=== PATIENT | female | born 1960 | race Caucasian/White ===

== ENCOUNTER 2018-12-18 18:42 | Emergency (ER) | payer BC ==
[2018-12-18] MEDS ORDERED: SODIUM CHLORIDE 0.9% 1,000 ML IV STA (19:30)
[2018-12-18] MEDS ORDERED: SODIUM CHLORIDE 0.9% 500 ML 500 ML IV STA (19:30)
[2018-12-18 20:14] LABS: INR 0.9 (<1.2); Partial Thromboplastin Time 23.2 sec (22.0-30.0)
[2018-12-18 20:16] LABS: ALT 27 U/L (9-52); AST 29 U/L (14-36); Albumin 4.1 g/dL (3.5-5.0); Alkaline Phosphatase 121 U/L (38-126); Anion Gap 8 mmol/L; Blood Urea Nitrogen 16 mg/dL (7-17); Calcium 9.1 mg/dL (8.4-10.2); Carbon Dioxide 28 mmol/L (22-30); Chloride 103 mmol/L (98-107); Glucose 117 mg/dL (74-99); Lipase 50 U/L (23-300); Magnesium 2.3 mg/dL (1.6-2.3); Potassium 4.3 mmol/L (3.5-5.1); Sodium 139 mmol/L (137-145); Total Bilirubin 0.5 mg/dL (0.2-1.3)
[2018-12-18 20:29] LABS: Anisocytosis Slight; Basophils % (A) 1 %; Eosinophils # (A) 0.1 k/uL (0-0.7); Eosinophils % (A) 2 %; HCT 24.8 % (34.0-46.0); Hypochromasia Marked; Lymphocytes # (A) 1.2 k/uL (1.0-4.8); Lymphocytes % (A) 21 %; MCH 18.2 pg (25.0-35.0); MCHC 28.1 g/dL (31.0-37.0); MCV 64.7 fL (80.0-100.0); Mean Platelet Volume 6.8; Microcytosis Marked; Monocytes # (A) 0.4 k/uL (0-1.0); Monocytes % (A) 7 %; Neutrophils # (A) 3.9 k/uL (1.3-7.7); Neutrophils % (A) 67 %; Platelet Count 317 k/uL (150-450); Poikilocytosis Moderate; RBC 3.83 m/uL (3.80-5.40); RDW 18.2 % (11.5-15.5); WBC 5.8 k/uL (3.8-10.6)
--- NOTE | 2018-12-18 21:24 | ED ---
Recheck HPI - General Chief Complaint: Recheck/Abnormal Lab/Rx Stated Complaint: low hemoglobin Time Seen by Provider: 12/18/18 19:30 Source: patient, RN notes reviewed, old records reviewed Mode of arrival: ambulatory Limitations: no limitations - History of Present Illness Initial Comments: This is a 58-year-old female the ER for evaluation of abnormal lab tests. Patient is presenting for evaluation of low hemoglobin. Patient denies vomiting blood denies blood in her stool no history of low hemoglobin. No prior history of blood transfusion. Patient states on outpatient lab test she did have a hemoglobin of what she believes was 4.8. She denies symptoms of lightheadedness dizziness or weakness. No feelings of syncope or near-syncope position changes or going from sitting to standing. No shortness of breath. MD Complaint: abnormal lab (Low hemoglobin) -: unknown Returns Today for: Called Because of Abnormal Lab/Test Symptoms Since Prior Visit: no new symptoms Context: called for abnormal lab result Associated Symptoms: none - Related Data Home Medications Medication Instructions Recorded Confirmed DULoxetine HCL [Cymbalta] 60 mg PO DAILY 12/18/18 12/18/18 LORazepam [Ativan] 0.5 mg PO QID 12/18/18 12/18/18 Naproxen Sodium [Aleve] 440 mg PO Q12HR 12/18/18 12/18/18 Potassium 99 mg PO DAILY 12/18/18 12/18/18 rOPINIRole HCL [Requip] 0.5 mg PO HS 12/18/18 12/18/18 traMADol HCL [Ultram] 1 - 2 tab PO BID 12/18/18 12/18/18 Allergies Allergy/AdvReac Type Severity Reaction Status Date / Time No Known Allergies Allergy Verified 12/18/18 20:39 Review of Systems ROS Statement: Those systems with pertinent positive or pertinent negative responses have been documented in the HPI. ROS Other: All systems not noted in ROS Statement are negative. Past Medical History Additional Past Medical History / Comment(s): chronic back pain, restless leg syndrome History of Any Multi-Drug Resistant Organisms: None Reported Past Surgical History: Tubal Ligation Past Psychological History: Anxiety, Depression Smoking Status: Never smoker Past Alcohol Use History: None Reported Past Drug Use History: None Reported General Exam Limitations: no limitations General appearance: alert, in no apparent distress Head exam: Present: atraumatic, normocephalic, normal inspection Eye exam: Present: normal appearance, PERRL, EOMI. Absent: scleral icterus, conjunctival injection, periorbital swelling ENT exam: Present: normal exam, mucous membranes moist Neck exam: Present: normal inspection. Absent: tenderness, meningismus, lymphadenopathy Respiratory exam: Present: normal lung sounds bilaterally. Absent: respiratory distress, wheezes, rales, rhonchi, stridor Cardiovascular Exam: Present: regular rate, normal rhythm, normal heart sounds. Absent: systolic murmur, diastolic murmur, rubs, gallop, clicks GI/Abdominal exam: Present: soft, normal bowel sounds. Absent: distended, tenderness, guarding, rebound, rigid Extremities exam: Present: normal inspection, full ROM, normal capillary refill. Absent: tenderness, pedal edema, joint swelling, calf tenderness Back exam: Present: normal inspection Neurological exam: Present: alert, oriented X3, CN II-XII intact Psychiatric exam: Present: normal affect, normal mood Skin exam: Present: warm, dry, intact, normal color. Absent: rash Course Vital Signs 12/18/18 12/18/18 12/18/18 18:59 21:03 21:51 Temperature 99.4 F 98.7 F Pulse Rate 111 H 99 92 Respiratory 18 16 18 Rate Blood Pressure 141/71 125/79 124/85 O2 Sat by Pulse 98 97 99 Oximetry - Reevaluation(s) Reevaluation #1: Medical records reviewed Patient has he will 7 today, will follow-up with primary care for further testing of hemoglobin Patient remains asymptomatic Medical Decision Making - Medical Decision Making 58 female the ER for evaluation she presents today for evaluation regards to abnormal lab tests. Patient's lab tests is much improved here in the ER, she is asymptomatic is no need for transfusion. She can be discharged - Lab Data Result diagrams: 12/18/18 19:55 12/18/18 19:55 Lab Results 12/18/18 12/18/18 12/18/18 Range/Units 19:55 19:55 19:55 WBC 5.8 (3.8-10.6) k/uL RBC 3.83 (3.80-5.40) m/uL Hgb 7.0 L (11.4-16.0) gm/dL Hct 24.8 L (34.0-46.0) % MCV 64.7 L (80.0-100.0) fL MCH 18.2 L (25.0-35.0) pg MCHC 28.1 L (31.0-37.0) g/dL RDW 18.2 H (11.5-15.5) % Plt Count 317 (150-450) k/uL Neutrophils % 67 % Lymphocytes % 21 % Monocytes % 7 % Eosinophils % 2 % Basophils % 1 % Neutrophils # 3.9 (1.3-7.7) k/uL Lymphocytes # 1.2 (1.0-4.8) k/uL Monocytes # 0.4 (0-1.0) k/uL Eosinophils # 0.1 (0-0.7) k/uL Basophils # 0.0 (0-0.2) k/uL Hypochromasia Marked Poikilocytosis Moderate Anisocytosis Slight Microcytosis Marked PT 10.0 (9.0-12.0) sec INR 0.9 (<1.2) APTT 23.2 (22.0-30.0) sec Sodium 139 (137-145) mmol/L Potassium 4.3 (3.5-5.1) mmol/L Chloride 103 (98-107) mmol/L Carbon Dioxide 28 (22-30) mmol/L Anion Gap 8 mmol/L BUN 16 (7-17) mg/dL Creatinine 0.68 (0.52-1.04) mg/dL Est GFR (CKD-EPI)AfAm >90 (>60 ml/min/1.73 sqM) Est GFR (CKD-EPI)NonAf >90 (>60 ml/min/1.73 sqM) Glucose 117 H (74-99) mg/dL Calcium 9.1 (8.4-10.2) mg/dL Magnesium 2.3 (1.6-2.3) mg/dL Total Bilirubin 0.5 (0.2-1.3) mg/dL AST 29 (14-36) U/L ALT 27 (9-52) U/L Alkaline Phosphatase 121 (38-126) U/L Troponin I (0.000-0.034) ng/mL Total Protein 7.0 (6.3-8.2) g/dL Albumin 4.1 (3.5-5.0) g/dL Lipase 50 (23-300) U/L Blood Type Blood Type Confirm Blood Type Recheck Antibody Screen Direct Antiglob Test Spec Expiration Date 12/18/18 12/18/18 12/18/18 Range/Units 19:55 19:55 21:39 WBC (3.8-10.6) k/uL RBC (3.80-5.40) m/uL Hgb (11.4-16.0) gm/dL Hct (34.0-46.0) % MCV (80.0-100.0) fL MCH (25.0-35.0) pg MCHC (31.0-37.0) g/dL RDW (11.5-15.5) % Plt Count (150-450) k/uL Neutrophils % % Lymphocytes % % Monocytes % % Eosinophils % % Basophils % % Neutrophils # (1.3-7.7) k/uL Lymphocytes # (1.0-4.8) k/uL Monocytes # (0-1.0) k/uL Eosinophils # (0-0.7) k/uL Basophils # (0-0.2) k/uL Hypochromasia Poikilocytosis Anisocytosis Microcytosis PT (9.0-12.0) sec INR (<1.2) APTT (22.0-30.0) sec Sodium (137-145) mmol/L Potassium (3.5-5.1) mmol/L Chloride (98-107) mmol/L Carbon Dioxide (22-30) mmol/L Anion Gap mmol/L BUN (7-17) mg/dL Creatinine (0.52-1.04) mg/dL Est GFR (CKD-EPI)AfAm (>60 ml/min/1.73 sqM) Est GFR (CKD-EPI)NonAf (>60 ml/min/1.73 sqM) Glucose (74-99) mg/dL Calcium (8.4-10.2) mg/dL Magnesium (1.6-2.3) mg/dL Total Bilirubin (0.2-1.3) mg/dL AST (14-36) U/L ALT (9-52) U/L Alkaline Phosphatase (38-126) U/L Troponin I <0.012 (0.000-0.034) ng/mL Total Protein (6.3-8.2) g/dL Albumin (3.5-5.0) g/dL Lipase (23-300) U/L Blood Type O Positive Blood Type Confirm O Positive Blood Type Recheck CABO Indicated Antibody Screen POSITIVE Direct Antiglob Test Positive Spec Expiration Date 12/21/2018 - 2355 Disposition Clinical Impression: Anemia Disposition: HOME SELF-CARE Condition: Good Instructions (If sedation given, give patient instructions): Anemia (ED) Is patient prescribed a controlled substance at d/c from ED?: No Referrals: Mayo Allen DO [Primary Care Provider] - 1-2 days
[2018-12-18 21:52] VITALS: BP 124/85; PULSE 92; RESP 18; TEMP 98.7
== END 2018-12-18 21:52 | disposition home or self-care (01) ==
LOC: EC 18:42 → SUPCPDRO 18:42 → EC 21:52
DX: D64.9 Anemia, unspecified (principal); G25.81 Restless legs syndrome; G89.29 Other chronic pain; F32.9 Major depressive disorder, single episode, unspecified; F41.9 Anxiety disorder, unspecified; Z79.1 Long term (current) use of non-steroidal anti-inflammatories (NSAID); Z79.891 Long term (current) use of opiate analgesic; Z79.899 Other long term (current) drug therapy
CPT/HCPCS: 36415; 80053; 83690; 83735; 84484; 85025; 85610; 85730; 86850; 86870; 86880; 86900; 86901; 96360; 99284

== ENCOUNTER 2019-10-04 10:37 | Inpatient (IN) | payer BC ==
[2019-10-04] MEDS ORDERED: SODIUM CHLORIDE 0.9% 1,000 ML IV STA ×2 (10:59)
[2019-10-04] MEDS ORDERED: methylPREDNISolone SOD SUCCI 125 MG/2 ML VIAL IV STA (10:59)
[2019-10-04] MEDS ORDERED: IBUPROFEN 600 MG TAB PO STA (11:01)
[2019-10-04] MEDS ORDERED: ACETAMINOPHEN TAB 500 MG TAB PO STA (11:01)
[2019-10-04] MEDS ORDERED: IPRATROPIUM-ALBUTEROL 3 ML NEB INHALATION STA (11:02)
--- NOTE | 2019-10-04 11:11 | ED ---
General Adult HPI - General Chief complaint: Shortness of Breath Stated complaint: Cough/CYNTHIA Time Seen by Provider: 10/04/19 10:52 Source: patient, family, RN notes reviewed, old records reviewed Mode of arrival: ambulatory Limitations: no limitations - History of Present Illness Initial comments: Patient is a 5-year-old female who presents emergency department today for concern for fever cough congestion for the past 4 days. She denies any history of sick contacts. She denies any travel history. Patient reports that she has no chest pain. She denies any [id number] treatment such as Motrin Tylenol this time. She reports the emergency department afebrile with 102.8 temperature and tachycardic. She states that her cough is relatively dry. She denies any abdominal pain. - Related Data Home Medications Medication Instructions Recorded Confirmed DULoxetine HCL [Cymbalta] 60 mg PO DAILY 12/18/18 10/04/19 Naproxen Sodium [Aleve] 440 mg PO Q12HR 12/18/18 10/04/19 Potassium 99 mg PO DAILY 12/18/18 10/04/19 traMADol HCL [Ultram] 100 mg PO BID 12/18/18 10/04/19 Albuterol Sulfate [Proair Hfa] 1 - 2 puff INHALATION ONCE PRN 10/04/19 10/04/19 LORazepam [Ativan] 1 mg PO BID 10/04/19 10/04/19 Magnesium 200 mg PO DAILY 10/04/19 10/04/19 Orphenadrine Citrate [Orphenadrine 100 mg PO HS 10/04/19 10/04/19 Citrate ER] Pantoprazole Sodium [Protonix] 40 mg PO DAILY 10/04/19 10/04/19 rOPINIRole HCL [Requip] 4 mg PO HS 10/04/19 10/04/19 Allergies Allergy/AdvReac Type Severity Reaction Status Date / Time No Known Allergies Allergy Verified 10/04/19 11:35 Review of Systems ROS Statement: Those systems with pertinent positive or pertinent negative responses have been documented in the HPI. ROS Other: All systems not noted in ROS Statement are negative. Past Medical History Additional Past Medical History / Comment(s): chronic back pain, restless leg syndrome History of Any Multi-Drug Resistant Organisms: None Reported Past Surgical History: Tubal Ligation Past Psychological History: Anxiety, Depression Smoking Status: Never smoker Past Alcohol Use History: None Reported Past Drug Use History: None Reported General Exam - General Exam Comments Initial Comments: Well-appearing 5-year-old female. Patient is short of breath. Minor wheezing noted. Temperature of 102.8. Limitations: no limitations General appearance: alert, in no apparent distress Head exam: Present: atraumatic, normocephalic, normal inspection Eye exam: Present: normal appearance ENT exam: Present: normal exam, mucous membranes moist Neck exam: Present: normal inspection. Absent: tenderness, meningismus, lymphadenopathy Respiratory exam: Present: wheezes. Absent: normal lung sounds bilaterally, respiratory distress, rales, rhonchi, stridor Cardiovascular Exam: Present: regular rate, normal rhythm, normal heart sounds. Absent: systolic murmur, diastolic murmur, rubs, gallop, clicks GI/Abdominal exam: Present: soft, normal bowel sounds. Absent: distended, tenderness, guarding, rebound, rigid Extremities exam: Present: normal inspection, full ROM, normal capillary refill. Absent: tenderness, pedal edema, joint swelling, calf tenderness Back exam: Present: normal inspection Neurological exam: Present: alert, oriented X3, CN II-XII intact Psychiatric exam: Present: normal affect, normal mood Skin exam: Present: warm, dry, intact, normal color. Absent: rash Course Vital Signs 10/04/19 10/04/19 10/04/19 10:42 11:26 11:38 Temperature 102.8 F H Pulse Rate 123 H 65 67 Respiratory 20 Rate Blood Pressure 188/69 O2 Sat by Pulse 99 Oximetry 10/04/19 12:11 Temperature Pulse Rate 116 H Respiratory 20 Rate Blood Pressure 118/55 O2 Sat by Pulse 100 Oximetry Medical Decision Making - Medical Decision Making 5 rolled female presents emergency department today with fever cough shortness of breath for the past 4 days. Patient had a fever of 102, wheezing was noted. Patient's chest x-ray shows evidence of her right upper pneumonia. Her influenza testing is negative. She has no travel history. Patient's CBC shows white blood cell count of 10.0. Hemoglobin is low at 6.7. She reports that she's had a history of anemia in the past has required transfusions. She reports that she's had extensive evaluation including colonoscopies and upper GI was unable to determine why she is anemic. Her hemoglobin at 6.7 today type and screen was ordered and Patient was given 1 unit of PRBCs. Patient has a positive occult test. Patient had blood cultures completed for concern for pneumonia and was started on Rocephin and azithromycin. After breathing treatment Motrin Tylenol and fluid she is feeling much better. I discussed the case with Dr. Cedeno and we will make the Patient for concern for symptomatic anemia causing dyspnea, comminiry aquired pneumonia pneumonia. - Lab Data Result diagrams: 10/04/19 12:10 10/04/19 12:10 Lab Results 10/04/19 10/04/19 10/04/19 Range/Units 12:00 12:10 12:10 WBC 10.0 (3.8-10.6) k/uL RBC 3.30 L (3.80-5.40) m/uL Hgb 6.7 L* (11.4-16.0) gm/dL Hct 23.8 L (34.0-46.0) % MCV 72.0 L (80.0-100.0) fL MCH 20.2 L (25.0-35.0) pg MCHC 28.0 L (31.0-37.0) g/dL RDW 18.2 H (11.5-15.5) % Plt Count 280 (150-450) k/uL Neutrophils % 83 % Lymphocytes % 7 % Monocytes % 7 % Eosinophils % 0 % Basophils % 0 % Neutrophils # 8.2 H (1.3-7.7) k/uL Lymphocytes # 0.7 L (1.0-4.8) k/uL Monocytes # 0.7 (0-1.0) k/uL Eosinophils # 0.0 (0-0.7) k/uL Basophils # 0.0 (0-0.2) k/uL Hypochromasia Marked Poikilocytosis Moderate Anisocytosis Slight Microcytosis Moderate PT 10.2 (9.0-12.0) sec INR 1.0 (<1.2) APTT 24.7 (22.0-30.0) sec Sodium (137-145) mmol/L Potassium (3.5-5.1) mmol/L Chloride (98-107) mmol/L Carbon Dioxide (22-30) mmol/L Anion Gap mmol/L BUN (7-17) mg/dL Creatinine (0.52-1.04) mg/dL Est GFR (CKD-EPI)AfAm (>60 ml/min/1.73 sqM) Est GFR (CKD-EPI)NonAf (>60 ml/min/1.73 sqM) Glucose (74-99) mg/dL Plasma Lactic Acid Kal (0.7-2.0) mmol/L Calcium (8.4-10.2) mg/dL Magnesium (1.6-2.3) mg/dL Total Bilirubin (0.2-1.3) mg/dL AST (14-36) U/L ALT (4-34) U/L Alkaline Phosphatase (38-126) U/L Total Protein (6.3-8.2) g/dL Albumin (3.5-5.0) g/dL Stool Occult Blood (Negative) Influenza Type A RNA Not Detected (Not Detectd) Influenza Type B (PCR) Not Detected (Not Detectd) 10/04/19 10/04/19 10/04/19 Range/Units 12:10 12:10 13:04 WBC (3.8-10.6) k/uL RBC (3.80-5.40) m/uL Hgb (11.4-16.0) gm/dL Hct (34.0-46.0) % MCV (80.0-100.0) fL MCH (25.0-35.0) pg MCHC (31.0-37.0) g/dL RDW (11.5-15.5) % Plt Count (150-450) k/uL Neutrophils % % Lymphocytes % % Monocytes % % Eosinophils % % Basophils % % Neutrophils # (1.3-7.7) k/uL Lymphocytes # (1.0-4.8) k/uL Monocytes # (0-1.0) k/uL Eosinophils # (0-0.7) k/uL Basophils # (0-0.2) k/uL Hypochromasia Poikilocytosis Anisocytosis Microcytosis PT (9.0-12.0) sec INR (<1.2) APTT (22.0-30.0) sec Sodium 132 L (137-145) mmol/L Potassium 4.0 (3.5-5.1) mmol/L Chloride 99 (98-107) mmol/L Carbon Dioxide 25 (22-30) mmol/L Anion Gap 8 mmol/L BUN 7 (7-17) mg/dL Creatinine 0.65 (0.52-1.04) mg/dL Est GFR (CKD-EPI)AfAm >90 (>60 ml/min/1.73 sqM) Est GFR (CKD-EPI)NonAf >90 (>60 ml/min/1.73 sqM) Glucose 200 H (74-99) mg/dL Plasma Lactic Acid Kal 1.8 (0.7-2.0) mmol/L Calcium 8.1 L (8.4-10.2) mg/dL Magnesium 2.0 (1.6-2.3) mg/dL Total Bilirubin 1.0 (0.2-1.3) mg/dL AST 32 (14-36) U/L ALT 19 (4-34) U/L Alkaline Phosphatase 91 (38-126) U/L Total Protein 6.0 L (6.3-8.2) g/dL Albumin 3.2 L (3.5-5.0) g/dL Stool Occult Blood Positive H (Negative) Influenza Type A RNA (Not Detectd) Influenza Type B (PCR) (Not Detectd) 10/04/19 12:40 EKG performed at 1220 shows sinus tachycardia, otherwise normal EKG. Ventricular rate of 116 beats per minute. Interval is 124 ms. QRS duration is 78 ms. QT QTc is 336/467 ms. Critical Care Time Critical Care Time: Yes Total Critical Care Time: 35 Disposition Clinical Impression: GI bleed, Anemia, Pneumonia, Sepsis Disposition: ADMITTED IP TO THIS HOSP Condition: Stable Is patient prescribed a controlled substance at d/c from ED?: No Referrals: Mayo Allen DO [Primary Care Provider] - 1-2 days Time of Disposition: 13:46
--- NOTE | 2019-10-04 11:50 | XR ---
EXAMINATION TYPE: XR chest 2V DATE OF EXAM: 10/04/2019 COMPARISON: 01/14/2012 HISTORY: Weakness and difficulty breathing TECHNIQUE: Frontal and lateral views of the chest are obtained. FINDINGS: In addition to diffuse interstitial prominence there is a right upper lobe opacity. No ple ural effusion or pneumothorax seen. Cardia mediastinal silhouette is mildly enlarged. No acute osseou s pathology seen. IMPRESSION: 1. Right upper lobe opacity may represent pneumonia. 2. Diffuse interstitial prominence, consider cardiogenic fluid overload.
[2019-10-04 12:24] LABS: Anisocytosis Slight; Basophils % (A) 0 %; Eosinophils % (A) 0 %; HCT 23.8 % (34.0-46.0); Hypochromasia Marked; Lymphocytes # (A) 0.7 k/uL (1.0-4.8); Lymphocytes % (A) 7 %; MCH 20.2 pg (25.0-35.0); Mean Platelet Volume 8.1; Microcytosis Moderate; Monocytes # (A) 0.7 k/uL (0-1.0); Monocytes % (A) 7 %; Neutrophils # (A) 8.2 k/uL (1.3-7.7); Neutrophils % (A) 83 %; Platelet Count 280 k/uL (150-450); Poikilocytosis Moderate; RDW 18.2 % (11.5-15.5)
[2019-10-04 12:31] LABS: ALT 19 U/L (4-34); AST 32 U/L (14-36); African American GFR (CKD) >90 (>60 ml/min/1.73 sqM); Albumin 3.2 g/dL (3.5-5.0); Alkaline Phosphatase 91 U/L (38-126); Anion Gap 8 mmol/L; Blood Urea Nitrogen 7 mg/dL (7-17); Calcium 8.1 mg/dL (8.4-10.2); Carbon Dioxide 25 mmol/L (22-30); Chloride 99 mmol/L (98-107); Glucose 200 mg/dL (74-99); Non-African American GFR(CKD) >90 (>60 ml/min/1.73 sqM); Sodium 132 mmol/L (137-145)
[2019-10-04 12:35] LABS: HGB 6.7 gm/dL (11.4-16.0)
[2019-10-04 12:36] LABS: Partial Thromboplastin Time 24.7 sec (22.0-30.0); Prothrombin Time 10.2 sec (9.0-12.0)
[2019-10-04] MEDS ORDERED: cefTRIAXone IN SWFI 1,000 MG/10 ML SYRINGE IVP STA (13:15)
[2019-10-04] MEDS ORDERED: AZITHROMYCIN 500 MG TAB PO STA (13:15)
[2019-10-04] MEDS ORDERED: NALOXONE 0.4 MG/ML 1 ML VIAL IV PRN (13:48)
[2019-10-04] MEDS ORDERED: HYDROmorphone 0.5 MG/0.5 ML SYRINGE IVP PRN (13:48)
[2019-10-04] MEDS ORDERED: ACETAMINOPHEN TAB 325 MG TAB PO PRN (13:48)
[2019-10-04] MEDS ORDERED: IBUPROFEN 400 MG TAB PO PRN (13:48)
[2019-10-04] MEDS ORDERED: MORPHINE SULFATE 4 MG/ML SYRINGE IV PRN (13:48)
[2019-10-04] MEDS ORDERED: PNEUMONIA PROTOCOL UTILIZED 1 EACH MISC PO PRN (13:51)
[2019-10-04] MEDS ORDERED: ALBUTEROL NEBULIZED 2.5 MG/3 ML INHALATION PRN (13:52)
[2019-10-04] MEDS ORDERED: PANTOPRAZOLE 40 MG/10 ML VIAL IVP ONE (13:53)
[2019-10-04 17:50] VITALS: RESP 18
[2019-10-04] MEDS ORDERED: HYDROcodone/APAP 5-325MG 1 EACH TAB PO PRN (18:52)
[2019-10-04] MEDS: IPRATROPIUM-ALBUTEROL 3 ML NEB INHALATION PRN (20:14)
[2019-10-04] MEDS: BUDESONIDE 1 MG/2 ML NEBU INHALATION SCH (20:15)
[2019-10-04] MEDS: FORMOTEROL FUMARATE 20 MCG/2 ML NEBU INHALATION SCH (20:15)
--- NOTE | 2019-10-04 20:58 | HP ---
HISTORY AND PHYSICAL DATE OF SERVICE: 10/04/2019 CHIEF COMPLAINT: Shortness of breath and cough. HISTORY OF PRESENT ILLNESS: This 59-year-old woman with a past medical history of multiple medical issues including history of COPD, history of bronchitis, history of previous anemia, transfusions, murmurs as a child, history of anxiety, depression, being followed by Dr. Allen in the outpatient setting, the patient is complaining of fever and cough for the last 4 days. The patient has cough and congestion. The patient does not have any sick contacts or any travel history. The patient also found to have a fever of 102.8. Patient tachycardic also. The patient came to [facility] and was admitted for further evaluation and treatment. A chest x-ray was done. Influenza was also done which is negative. Chest x-ray reviewed personally by me showed some right upper lobe pneumonia and diffuse interstitial pneumonia was suspected. Patient admitted to the hospital for further evaluation and treatment. CoVID19 testing was ordered. There is no history of any rigors, chills, headache, loss of consciousness or seizures. The hemoglobin is found to be 6.7. The previous lab values showed 7 about a year ago. PAST MEDICAL: History of COPD, history of bronchitis, previously and anemia, transfusions, anxiety, depression. MEDICATIONS: 1. Ultram 100 mg b.i.d. p.r.n. 2. Requip 4 mg q.h.s. 3. Potassium 90 mg p.o. daily. 4. Protonix 40 mg daily. 5. Orphenadrine 100 mg p.o. q6h. 6. Aleve 440 mg p.o. b.i.d. 7. Magnesium 200 mg p.o. daily. 8. Ativan 1 mg b.i.d. 9. Cymbalta 60 mg p.o. daily. 10.ProAir 1 to 2 puffs q.6h p.r.n. ALLERGIES: None. FAMILY HISTORY: History of hypertension and hyperlipidemia in the family. SOCIAL HISTORY: Previous history of smoking. No history of current smoking or alcohol intake. REVIEW OF SYSTEMS: ENT: No diminished vision. No diminished hearing. CARDIOVASCULAR system is as mentioned earlier. RESPIRATORY: As mentioned earlier. GI no nausea or vomiting. no dysuria. CENTRAL NERVOUS SYSTEM: No focal deficits. ALLERGIES/IMMUNOLOGY: No asthma or hayfever. MUSCULOSKELETAL as mentioned earlier. HEMATOLOGY/ONCOLOGY: No history of anemia. ENDOCRINE: No history of diabetes or hypothyroidism. CONSTITUTIONAL: As mentioned earlier. DERMATOLOGY: Negative. RHEUMATOLOGY: Negative. PSYCHIATRY as mentioned earlier. PHYSICAL EXAM: The patient is alert and oriented times three. Pulse is 105. Blood pressure is 130/72, respiration 18, temperature 99.2, pulse ox 100% on room air. HEENT: Conjunctivae pale. Oral mucosa moist. NECK is no jugular venous distention. No carotid bruit. No lymph node enlargement. CARDIOVASCULAR SYSTEM: S1, S2 muffled. RESPIRATIONS: Breath sounds diminished in the bases. A few scattered rhonchi and crackles. Breath sounds diminished in the bases. No bronchial breath sounds. ABDOMEN: Soft, nontender. No mass palpable. No ascites. LEGS: No edema. No swelling. Nervous system: Higher functions as mentioned earlier. Moves all four limbs. No focal motor or sensory deficits. LYMPHATICS: No lymph nodes palpable in the neck, axillae or groin. SKIN: No ulcer, no rashes and no bleeding. JOINTS: No active deforming arthropathy. ASSESSMENT: 1. Chronic obstructive pulmonary disease acute exacerbation with possible right upper lobe pneumonia, rule out interstitial pneumonia, viral pneumonia. 2. Anemia, microcytic possibly acute on chronic gastrointestinal blood loss. 3. Hypoalbuminemia. 4. Chronic obstructive pulmonary disease. 5. History of bronchitis. 6. History of previous anemia, transfusion. 7. History of murmur as a child. 8. History of EGD/colonoscopy. 9. History of anxiety, depression. 10.Remote history of nicotine dependence. 11.Obesity with body mass index 31.1. 12.NO CODE, NO CPR, NO VENT. RECOMMENDATIONS AND DISCUSSION: In this 59-year-old woman who presented with multiple complex medical issues, we will monitor the patient closely, continue the current medications, management and symptomatic treatment. We will initiate broad-spectrum antibiotics and steroids and empiric antibiotics as mentioned earlier. The flu testing is negative, but however, stool OB is positive. I would also recommend we will follow the results of the Co- Vid19 testing. Otherwise, Gastroenterology consultation has been ordered for evaluation. Possible endoscopies. Dr. Higginbotham will be consulted for pneumonia. Guarded prognosis because of multiple complex medical issues. Further recommendations to follow A copy of this dictation is being forwarded to Dr. Allen who is the primary physician. MMODL / IJN: [id number] /
[2019-10-04] MEDS: traMADol 50 MG TAB PO SCH (22:01)
[2019-10-04] MEDS: CYCLOBENZAPRINE 10 MG TAB PO SCH (22:02)
[2019-10-04] MEDS: methylPREDNISolone SOD SUCCI 125 MG/2 ML VIAL IV SCH (22:02)
[2019-10-04 22:04] LABS: Glucose,Whole Blood 322 mg/dL (75-99)
[2019-10-04] MEDS: INSULIN ASPART (NovoLOG) 100 UNIT/ML VIAL SQ SCH (22:14)
[2019-10-05 06:10] LABS: Glucose,Whole Blood 278 mg/dL (75-99)
[2019-10-05] MEDS: methylPREDNISolone SOD SUCCI 125 MG/2 ML VIAL IV SCH ×5 (06:25→23:06)
[2019-10-05] MEDS: LORazepam 1 MG TAB PO SCH ×2 (06:25→10:14)
[2019-10-05 06:39] LABS: Anisocytosis Slight; Basophils % (A) 0 %; Eosinophils % (A) 0 %; HCT 28.2 % (34.0-46.0); HGB 7.8 gm/dL (11.4-16.0); Hypochromasia Marked; Lymphocytes # (A) 0.7 k/uL (1.0-4.8); Lymphocytes % (A) 6 %; MCH 21.1 pg (25.0-35.0); MCHC 27.7 g/dL (31.0-37.0); Mean Platelet Volume 7.8; Microcytosis Slight; Monocytes # (A) 0.3 k/uL (0-1.0); Monocytes % (A) 3 %; Neutrophils # (A) 10.5 k/uL (1.3-7.7); Neutrophils % (A) 90 %; Platelet Count 285 k/uL (150-450); Poikilocytosis Moderate; RBC 3.71 m/uL (3.80-5.40); RDW 18.4 % (11.5-15.5); WBC 11.6 k/uL (3.8-10.6)
[2019-10-05] MEDS: INSULIN ASPART (NovoLOG) 100 UNIT/ML VIAL SQ SCH ×4 (06:43→21:43)
[2019-10-05 06:49] LABS: African American GFR (CKD) >90 (>60 ml/min/1.73 sqM); Anion Gap 5 mmol/L; Blood Urea Nitrogen 13 mg/dL (7-17); Calcium 8.9 mg/dL (8.4-10.2); Carbon Dioxide 26 mmol/L (22-30); Chloride 105 mmol/L (98-107); Glucose 256 mg/dL (74-99); Non-African American GFR(CKD) >90 (>60 ml/min/1.73 sqM); Potassium 4.5 mmol/L (3.5-5.1); Sodium 136 mmol/L (137-145)
[2019-10-05] MEDS ORDERED: PANTOPRAZOLE 40 MG TABLET PO SCH (09:00)
[2019-10-05] MEDS ORDERED: AZITHROMYCIN 500 MG TAB PO SCH (09:00)
[2019-10-05] MEDS ORDERED: PANTOPRAZOLE 40 MG/10 ML VIAL IVP SCH (09:00)
[2019-10-05] MEDS ORDERED: ONDANSETRON 4 MG/2 ML VIAL IVP PRN (09:01)
[2019-10-05] MEDS: IPRATROPIUM-ALBUTEROL 3 ML NEB INHALATION PRN (09:43)
[2019-10-05] MEDS: FORMOTEROL FUMARATE 20 MCG/2 ML NEBU INHALATION SCH ×3 (09:43→19:40)
[2019-10-05] MEDS: BUDESONIDE 1 MG/2 ML NEBU INHALATION SCH ×3 (09:43→19:25)
[2019-10-05] MEDS: AZITHROMYCIN 500 MG in SODIUM CHLORIDE 0.9% 250 ML IVPB SCH (10:12)
[2019-10-05] MEDS: MAGNESIUM OXIDE 400 MG TAB PO SCH (10:13)
[2019-10-05] MEDS: POTASSIUM CHLORIDE ER 10 MEQ TAB.ER.PRT PO SCH (10:14)
[2019-10-05] MEDS: traMADol 50 MG TAB PO SCH ×2 (10:14→21:43)
[2019-10-05] MEDS: DULoxetine HCL 60 MG CAPSULE.DR PO SCH (10:14)
--- NOTE | 2019-10-05 10:26 | XR ---
EXAMINATION TYPE: XR chest 1V DATE OF EXAM: 10/05/2019 COMPARISON: 10/04/2019 HISTORY: Cough and shortness of breath TECHNIQUE: Single frontal view of the chest is obtained. FINDINGS: Increasing confluence of the right apical opacity is seen abutting the right paratracheal space. There is slight elevation of the right hemidiaphragm secondary to volume loss. Remainder the l ungs are well aerated without pleural effusion or pneumothorax seen. Cardiomediastinal silhouette is stable. No acute osseous process. IMPRESSION: Increasing confluence of the right apical opacity that may represent pneumonia in the ap propriate clinical setting. Follow-up to resolution is recommended to exclude mass or nodule.
[2019-10-05] MEDS: PANTOPRAZOLE 40 MG/10 ML VIAL IVP SCH ×2 (10:30→23:08)
[2019-10-05 11:37] LABS: Glucose,Whole Blood 243 mg/dL (75-99)
--- NOTE | 2019-10-05 11:45 | P.CNPUL ---
History of Present Illness Consult date: 10/05/19 Reason for consult: dyspnea, cough, pneumonia, abnormal CXR/CT History of present illness: 59-year-old female with past medical history of chronic anemia requiring blood transfusions, anxiety, depression, bronchitis who presented to the hospital on10/04/2019 for evaluation of shortness of breath, cough, and fever, in addition patient had altered mentation. On presentation patient's fever was 102.8F, patient was tachycardic. Patient had been sick at home for last 4 days. When she called her primary care provider he was told to go to the nearest emergency department, chest x-ray was completed showing right upper lobe opacity that could represent pneumonia, and diffuse interstitial prominence with consideration of cardiogenic fluid overload. Lab work showed white blood cell count of 10.0, hemoglobin of 6.7, platelet count of 280, coagulation profile was within normal limits, serum sodium was 132, electrolytes and renal profile were unremarkable, plasma lactic acid was 1.8, LFTs were within normal limits, influenza screen was negative. Stool for occult blood was positive. Patient is on daily Protonix on the regular basis, and naproxen 140 mg twice daily. She has albuterol rescue inhaler at home. She states she has smoked in the past, she quit in 1999, smoked half a pack a day for 10 years. Not on oxygen on a regular basis. She was placed on Zithromax and Rocephin for antibiotic coverage, her cough is dry, patient is not able to clear any sputum, her mentation is much improved today, she was given IV fluids, and received 1 units of PRBCs, COVID 19 testing was sent based on her symptoms Review of Systems All systems: negative Constitutional: Denies chills, Denies fever Eyes: denies blurred vision, denies pain Ears, nose, mouth and throat: Denies headache, Denies sore throat Cardiovascular: Denies chest pain, Denies shortness of breath Respiratory: Reports cough, Reports dyspnea Gastrointestinal: Denies abdominal pain, Denies diarrhea, Denies nausea, Denies vomiting Genitourinary: Denies dysuria, Denies hematuria Musculoskeletal: Denies myalgias Integumentary: Denies pruritus, Denies rash Neurological: Reports change in mentation, Denies numbness, Denies weakness Psychiatric: Denies anxiety, Denies depression Endocrine: Denies fatigue, Denies weight change Past Medical History Past Medical History: COPD Additional Past Medical History / Comment(s): Bronchitis, previous anemia in 201 9 with transfusion, murmur as a child, sinus tach, chronic low back pain, restless leg syndrome History of Any Multi-Drug Resistant Organisms: None Reported Past Surgical History: Breast Surgery, Tubal Ligation Additional Past Surgical History / Comment(s): Bilateral breast reductions, L oophorectomy d/t cysts, EGD and colonoscopy Past Anesthesia/Blood Transfusion Reactions: No Reported Reaction Additional Past Anesthesia/Blood Transfusion Reaction / Comment(s): Pt has r eceived blood in past without reaction. Smoking Status: Former smoker - Past Family History Father Family Medical History: Hyperlipidemia, Hypertension Mother Family Medical History: No Reported History Additional Family Medical History / Comment(s): Mother is healthy Medications and Allergies Home Medications Medication Instructions Recorded Confirmed Type DULoxetine HCL [Cymbalta] 60 mg PO DAILY 12/18/18 10/04/19 History Naproxen Sodium [Aleve] 440 mg PO Q12HR 12/18/18 10/04/19 History Potassium 99 mg PO DAILY 12/18/18 10/04/19 History traMADol HCL [Ultram] 100 mg PO BID 12/18/18 10/04/19 History Albuterol Sulfate [Proair Hfa] 1 - 2 puff INHALATION ONCE PRN 10/04/19 10/04/19 History LORazepam [Ativan] 1 mg PO BID 10/04/19 10/04/19 History Magnesium 200 mg PO DAILY 10/04/19 10/04/19 History Orphenadrine Citrate [Orphenadrine 100 mg PO HS 10/04/19 10/04/19 History Citrate ER] Pantoprazole Sodium [Protonix] 40 mg PO DAILY 10/04/19 10/04/19 History rOPINIRole HCL [Requip] 4 mg PO HS 10/04/19 10/04/19 History Allergies Allergy/AdvReac Type Severity Reaction Status Date / Time No Known Allergies Allergy Verified 10/04/19 11:35 Physical Exam Vitals: Vital Signs Temp Pulse Pulse Resp BP BP Pulse Ox 10/05/19 10:10 100 10/05/19 09:53 100 10/05/19 09:43 98 10/05/19 04:00 106 H 18 136/73 98 10/05/19 00:00 97.0 F L 89 18 95/95 97 10/04/19 20:45 67 10/04/19 20:34 67 10/04/19 20:16 67 10/04/19 20:00 96.5 F L 102 H 18 117/69 96 10/04/19 19:55 96.5 F L 102 H 18 117/69 96 10/04/19 17:15 99.1 F 105 H 18 132/72 10/04/19 16:45 99.1 F 101 H 17 119/62 10/04/19 16:35 99.3 F 106 H 18 109/65 95 10/04/19 16:00 18 10/04/19 15:20 102.8 F H 111 H 20 101/50 100 10/04/19 12:11 116 H 20 118/55 100 10/04/19 11:38 67 Intake and Output 10/04/19 10/05/19 10/05/19 22:59 06:59 14:59 Intake Total 310 400 Output Total 800 Balance 310 -400 Intake: Oral 400 Blood Product 310 Rc As-1 Unit 310 [id number] Output: Urine 800 Other: Weight 77.111 kg 89 kg GENERAL EXAM: Alert, very pleasant, 59-year-old obese white female, on room air, with pulse ox of 97-98% comfortable in no apparent distress. HEAD: Normocephalic/atraumatic. EYES: Normal reaction of pupils, equal size. Conjunctiva pink, sclera white. NOSE: Clear with pink turbinates. THROAT: No erythema or exudates. NECK: No masses, no JVD, no thyroid enlargement, no adenopathy. CHEST: No chest wall deformity. Symmetrical expansion. LUNGS: Diminished air entry with minimal wheezes, no rhonchi or dullness. CVS: Regular rate and rhythm, normal S1 and S2, no gallops, no murmurs, no rubs ABDOMEN: Soft, nontender. No hepatosplenomegaly, normal bowel sounds, no guarding or rigidity. EXTREMITIES: No clubbing, no edema, no cyanosis, 2+ pulses and upper and lower extremities. MUSCULOSKELETAL: Muscle strength and tone normal. SPINE: No scoliosis or deformity SKIN: No rashes CENTRAL NERVOUS SYSTEM: Alert and oriented -3. No focal deficits, tone is normal in all 4 extremities. PSYCHIATRIC: Alert and oriented -3. Appropriate affect. Intact judgment and insight. Results - Laboratory Findings CBC and BMP: 10/05/19 06:12 10/05/19 06:12 PT/INR, D-dimer PT 10.2 sec (9.0-12.0) 10/04/19 12:10 INR 1.0 (<1.2) 10/04/19 12:10 Abnormal lab findings: Abnormal Labs 10/04/19 10/04/19 10/04/19 12:10 12:10 13:04 WBC RBC 3.30 L Hgb 6.7 L* Hct 23.8 L MCV 72.0 L MCH 20.2 L MCHC 28.0 L RDW 18.2 H Neutrophils # 8.2 H Lymphocytes # 0.7 L Sodium 132 L Glucose 200 H POC Glucose (mg/dL) Calcium 8.1 L Total Protein 6.0 L Albumin 3.2 L Stool Occult Blood Positive H Crossmatch 10/04/19 10/04/19 10/05/19 13:36 22:03 06:08 WBC RBC Hgb Hct MCV MCH MCHC RDW Neutrophils # Lymphocytes # Sodium Glucose POC Glucose (mg/dL) 322 H 278 H Calcium Total Protein Albumin Stool Occult Blood Crossmatch See Detail 10/05/19 10/05/19 06:12 06:12 WBC 11.6 H RBC 3.71 L Hgb 7.8 L Hct 28.2 L MCV 76.0 L MCH 21.1 L MCHC 27.7 L RDW 18.4 H Neutrophils # 10.5 H Lymphocytes # 0.7 L Sodium 136 L Glucose 256 H POC Glucose (mg/dL) Calcium Total Protein Albumin Stool Occult Blood Crossmatch - Diagnostic Findings Chest x-ray: report reviewed, image reviewed Assessment and Plan Plan: Assessment: #1. Febrile illness, dyspnea, cough, possibly related to right upper lobe pneumonia. Chest x-ray showed right upper lobe opacity and interstitial prominence. Influenza screen was negative, COVID 19 testing sent and is pending at this time #2. Altered mental status on admission, possibly related to sepsis, improved on today's exam #3. Acute on chronic anemia, patient presented with a hemoglobin of 6.7, was transfused with 1 unit of packed red blood cells. Occult stool was positive for blood. She has previous history of chronic anemia requiring blood transfusions #4. Former smoker, in remission since 1999, smoked half a pack a day for 10 years #5. History of bronchitis, suspect COPD #6. Anxiety/depression Plan: Continue current antibiotics, blood cultures have been drawn and are pending at this time, monitor fever pattern, mentation has significantly improved, chest x- rays have been reviewed showing right upper lobe opacity the possibility of a right upper lobe pneumonia, we'll send the Pocalcitonin. Continue Zithromax and Rocephin, continue breathing treatments, patient is on room air, her cough is dry and nonproductive, awaiting results of the COVID 19 testing. We'll continue to followI I performed a history & physical examination of the patient and discussed their management with my nurse practitioner, Salima Valencia. I reviewed the nurse practitioner's note and agree with the documented findings and plan of care. Lung sounds are positive for mild wheezing throughout the lung watts. The findings and the impression was discussed with the patient. I attest to the documentation by the nurse practitioner. Time with Patient: Greater than 30
[2019-10-05] MEDS: IPRATROPIUM-ALBUTEROL 3 ML NEB INHALATION SCH ×2 (12:32→19:25)
--- NOTE | 2019-10-05 13:01 | CONS ---
CONSULTATION DATE OF SERVICE: 10/05/2019. REASON FOR CONSULTATION: Severe anemia, shortness of breath and cough. HISTORY OF PRESENT ILLNESS: The patient is a 59-year-old pleasant white female with history of COPD and bronchitis was admitted to the hospital because of fever, chronic cough for the last 4 days' duration. She had fever of 102.3 in the emergency room and hence was admitted to the hospital for further management. Chest x-ray done showed right upper lobe pneumonia. COVID 19 is pending, the is pending and so far has been negative. She is on broad spectrum antibiotics. When she was admitted to the hospital, she was noted to have a hemoglobin of 6.5 g/dL, required 1 unit of blood transfusion [QAMARKER]. The patient had negative abdominal pain. Reports no nausea, vomiting, no rectal bleeding or melena. Stool for Hemoccult was positive. Patient had a similar episode of anemia in February of 2019 and underwent an upper endoscopy, colonoscopy and small bowel capsule endoscopy in the [place] area and according to the patient, these were all within normal limits. PAST MEDICAL HISTORY: Significant for COPD, bronchitis, anxiety, depression, degenerative joint disease, gastroesophageal reflux disease. MEDICATIONS: At home include potassium, Protonix, . Aleve, magnesium, Ativan, Cymbalta, ProAir and Ultram. ALLERGIES: None. SOCIAL HISTORY: Previous history of smoking but no alcohol use. No current smoking. FAMILY HISTORY: Mother had hyperlipidemia. Father has hypertension. REVIEW OF SYSTEMS: CARDIOPULMONARY: She denies any chest pain, but does complain of shortness of breath and chronic cough. ENT/VISION: Unremarkable. GI: As mentioned above. NEUROLOGY: Unremarkable. PSYCHIATRY: Unremarkable. MUSCULOSKELETAL: Degenerative joint disease. CONSTITUTIONAL: High fever but no chills or night sweats. HEMATOLOGY: Unremarkable. PHYSICAL EXAMINATION: She appears comfortable, in no apparent distress. Vital signs are stable. Blood pressure is 133/86, pulse rate 100, temperature 98. HEENT: Examination unremarkable. Conjunctivae are pink. Sclerae nonicteric, oral cavity no lesions. NECK: No JVD or lymph node enlargement. CHEST: Clear to auscultation. HEART: Regular rate and rhythm. ABDOMEN: Soft. Bowel sounds are positive. No organomegaly. EXTREMITIES: No pedal edema. SKIN: No rashes. NEUROLOGIC: Alert and oriented x3. No focal deficits. LABS: WBC 10, hemoglobin 6.7, platelets normal, MCV 72. INR is normal. Basic metabolic panel is within normal limits. Stool occult blood is negative, Influenza A and B are negative, today hemoglobin is 7.8. IMPRESSION: 1. Microcytic hypochromic anemia, most likely related to iron deficiency from occult gastrointestinal blood loss. Patient states that she did have an EGD and a colonoscopy as well as small bowel capsule endoscopy done in the [facility] in February of 2019 and no obvious etiology of bleeding is identified. She presently has recurrent anemia, most likely iron deficiency. 2. Fever, chills, cough, shortness of breath. Possible pneumonia. 3. Exacerbation of chronic obstructive pulmonary disease. RECOMMENDATION: 1. Will proceed with iron studies. 2. Continue with antibiotics. 3. Monitor CBC on a daily basis. 4. Since the patient did have an EGD, colonoscopy and small-bowel capsule endoscopy in February of 2019, we have no plans for repeat endoscopic investigation at the present time. I will try to obtain all the records and will follow with you closely. Thank you for this consultation. MMODL / IJN: [id number] /
[2019-10-05] MEDS ORDERED: RX INFO: IV CONTRAST WAS GIVEN 1 EACH MISC MISCELLANE PRN (14:33)
[2019-10-05 16:51] LABS: Glucose,Whole Blood 247 mg/dL (75-99)
[2019-10-05 18:47] LABS: Ferritin 45.9 ng/mL (10.0-291.0)
[2019-10-05 19:01] LABS: % Iron Saturation 2.19 (12.00-45.00)
[2019-10-05 19:45] LABS: Appearance,Urine Clear (Clear); Bilirubin,Urine Negative (Negative); Blood,Urine Negative (Negative); Color,Urine Yellow; Glucose,Urine (UA) 3+ (Negative); Hyaline Casts,Urine 11 /lpf (0-2); Ketones,Urine Negative (Negative); Leukocyte Esterase,Urine Negative (Negative); Mucus,Urine Rare /hpf; Nitrite,Urine Negative (Negative); Protein,Urine 1+ (Negative); RBC,Urine <1 /hpf (0-5); Specific Gravity,Urine 1.028 (1.001-1.035); Squamous Epithelial Cell,Urine 1 /hpf (0-4); Urobilinogen,Urine <2.0 mg/dL (<2.0); WBC,Urine 1 /hpf (0-5)
--- NOTE | 2019-10-05 20:07 | PN ---
PROGRESS NOTE DATE OF SERVICE: 10/05/2019 This 59-year-old woman who was admitted with shortness of breath and cough had possible COPD, acute exacerbation. The patient has significant interstitial pneumonia. The most recent chest x-ray, which was reviewed personally by me, showed evidence of some interstitial changes. Dr. Higginbotham is following the patient closely. The patient also had anemia. Dr. Holt from Gastroenterology is also following the patient closely. Influenza is negative. Past medical history reviewed. Dr. Holt has recommended iron studies. The patient had extensive workup for GI bleeding, including EGD, colonoscopy and small-bowel capsule enteroscopy in February 2019. We will continue to monitor. REVIEW OF SYSTEMS: CARDIOVASCULAR SYSTEM: As mentioned earlier. RESPIRATORY SYSTEM: As mentioned earlier. GI: As mentioned earlier. : No dysuria or retention. NERVOUS SYSTEM: No numbness, weakness. CURRENT MEDICATIONS: Reviewed. They include: 1. Tylenol p.r.n. 2. Economy 5 mg q.6 p.r.n. 3. DuoNeb q.i.d. and p.r.n. 4. Zithromax 500 mg daily. 5. Pulmicort 1 mg b.i.d. 6. Rocephin 1 gram daily. 7. Flexeril 10 mg at bedtime. 8. Cymbalta 60 mg p.o. daily. 9. Perforomist 20 mcg b.i.d. 10.Dilaudid 0.5 mg q.3 p.r.n. 11.Motrin p.r.n. 12.NovoLog. 13.Ativan. 14.Magnesium oxide. 15.Solu-Medrol. 16.Morphine sulfate. 17.Narcan. 18.Protonix. 19.Requip. 20.Ultram. PHYSICAL EXAMINATION: Patient is alert, oriented x3. Pulse is 112, blood pressure 123/58, respiration 18, temperature 98.4, pulse ox 97% on room air. HEENT: Conjunctivae normal. NECK: No jugular venous distention. CARDIOVASCULAR SYSTEM: S1, S2 muffled. RESPIRATORY SYSTEM: Breath sounds diminished at the bases. Scattered rhonchi and crackles. ABDOMEN: Soft, non-tender. LEGS: No edema. No swelling. NERVOUS SYSTEM: No focal deficit. LABS: Labs at this time show WBC 11.6, hemoglobin 7.8, sodium 136. Glucose noted. Stool OB is positive. ASSESSMENT: 1. Chronic obstructive pulmonary disease, acute exacerbation, with possible right upper lobe pneumonia, possibly interstitial pneumonia or viral pneumonia. 2. Anemia, microcytic, possibly acute on chronic gastrointestinal blood loss. Previous workup included EGD, colonoscopy, capsule endoscopy in February 2019 negative. 3. Hypoalbuminemia. 4. Chronic obstructive pulmonary disease. 5. History of bronchitis. 6. History of previous anemia, transfusion. 7. History of murmur as a child. 8. EGD and colonoscopy. 9. History of anxiety, depression. 10.Remote history of nicotine dependence. 11.Obesity with a body mass index of 31.1. 12.NO CODE, NO CPR, NO CPR, NO VENT. 13.Being tested for COVID-19. RECOMMENDATIONS AND DISCUSSION: In this 59-year-old woman who presented with multiple complex medical issues, I would recommend to continue the current medication, monitor the hemoglobin closely. Currently the hemoglobin is 7.8. If it drops to less than 7, I would definitely recommend a unit of transfusion. Otherwise, continue the antibiotics. Continue the bronchodilators. Closely follow with Pulmonary and Gastroenterology. Empiric antibiotics. Gastroenterology is not planning any workup at this time. From the pulmonary standpoint, the patient is on IV steroids as well. Will continue to monitor and we are awaiting COVID-19 testing as well. Overall prognosis is guarded because of multiple complex medical issues. Further recommendations to follow. MMODL / IJN: [id number] /
[2019-10-05 20:27] LABS: Glucose,Whole Blood 389 mg/dL (75-99)
[2019-10-05] MEDS: CYCLOBENZAPRINE 10 MG TAB PO SCH (21:43)
[2019-10-06 03:27] LABS: Urine Alcohol Negative (Negative); Urine Barbiturate Negative (Negative); Urine Cocaine Negative (Negative); Urine Methadone Negative (Negative); Urine Opiates Negative (Negative); Urine Phencyclidine Negative (Negative)
[2019-10-06 06:16] LABS: Glucose,Whole Blood 254 mg/dL (75-99)
[2019-10-06 06:24] LABS: Anisocytosis Slight; Basophils % (A) 0 %; Eosinophils % (A) 0 %; HCT 27.4 % (34.0-46.0); HGB 7.4 gm/dL (11.4-16.0); Hypochromasia Marked; Lymphocytes # (A) 0.5 k/uL (1.0-4.8); Lymphocytes % (A) 3 %; MCH 20.8 pg (25.0-35.0); MCHC 26.8 g/dL (31.0-37.0); MCV 77.4 fL (80.0-100.0); Mean Platelet Volume 7.8; Microcytosis Slight; Monocytes # (A) 0.3 k/uL (0-1.0); Monocytes % (A) 2 %; Neutrophils # (A) 13.8 k/uL (1.3-7.7); Neutrophils % (A) 93 %; Platelet Count 333 k/uL (150-450); Poikilocytosis Moderate; RBC 3.54 m/uL (3.80-5.40); WBC 14.8 k/uL (3.8-10.6)
[2019-10-06] MEDS: INSULIN ASPART (NovoLOG) 100 UNIT/ML VIAL SQ SCH ×4 (06:32→21:38)
[2019-10-06] MEDS: methylPREDNISolone SOD SUCCI 125 MG/2 ML VIAL IV SCH ×4 (06:32→23:47)
[2019-10-06] MEDS: LORazepam 1 MG TAB PO SCH ×3 (06:33→21:35)
[2019-10-06 06:49] LABS: African American GFR (CKD) >90 (>60 ml/min/1.73 sqM); Anion Gap 10 mmol/L; Blood Urea Nitrogen 22 mg/dL (7-17); Calcium 8.4 mg/dL (8.4-10.2); Carbon Dioxide 24 mmol/L (22-30); Chloride 100 mmol/L (98-107); Glucose 231 mg/dL (74-99); Non-African American GFR(CKD) >90 (>60 ml/min/1.73 sqM); Potassium 5.1 mmol/L (3.5-5.1); Sodium 134 mmol/L (137-145)
[2019-10-06] MEDS: BUDESONIDE 1 MG/2 ML NEBU INHALATION SCH ×2 (09:02→19:35)
[2019-10-06] MEDS: IPRATROPIUM-ALBUTEROL 3 ML NEB INHALATION SCH ×3 (09:03→19:37)
[2019-10-06] MEDS: FORMOTEROL FUMARATE 20 MCG/2 ML NEBU INHALATION SCH ×2 (09:03→19:35)
[2019-10-06] MEDS: MAGNESIUM OXIDE 400 MG TAB PO SCH (09:39)
[2019-10-06] MEDS: traMADol 50 MG TAB PO SCH ×2 (09:40→21:34)
[2019-10-06] MEDS: PANTOPRAZOLE 40 MG/10 ML VIAL IVP SCH ×2 (09:41→21:33)
[2019-10-06] MEDS: POTASSIUM CHLORIDE ER 10 MEQ TAB.ER.PRT PO SCH (09:41)
[2019-10-06] MEDS: AZITHROMYCIN 500 MG in SODIUM CHLORIDE 0.9% 250 ML IVPB SCH (09:42)
[2019-10-06] MEDS: DULoxetine HCL 60 MG CAPSULE.DR PO SCH (09:42)
--- NOTE | 2019-10-06 10:00 | P.PN ---
Subjective Progress Note Date: 10/06/19 59-year-old female with past medical history of chronic anemia requiring blood transfusions, anxiety, depression, bronchitis who presented to the hospital on10/04/2019 for evaluation of shortness of breath, cough, and fever, in addition patient had altered mentation. On presentation patient's fe anastasiia was 102.8F, patient was tachycardic. Patient had been sick at home for last 4 days. When she called her primary care provider he was told to go to the nearest emergency department, chest x-ray was completed showing right upper lobe opacity that could represent pneumonia, and diffuse interstitial prominence with consideration of cardiogenic fluid overload. Lab work showed white blood cell c ount of 10.0, hemoglobin of 6.7, platelet count of 280, coagulation profile was within normal limits, serum sodium was 132, electrolytes and renal profile were unremarkable, plasma lactic acid was 1.8, LFTs were within normal limits, influenza screen was negative. Stool for occult blood was positive. Patient is on daily Protonix on the regular basis, and naproxen 140 mg twice daily. She has albuterol rescue inhaler at home. She states she has smoked in the past, she quit in 1999, smoked half a pack a day for 10 years. Not on oxygen on a regular basis. She was placed on Zithromax and Rocephin for antibiotic coverage, her cough is dry, patient is not able to clear any sputum, her mentati on is much improved today, she was given IV fluids, and received 1 units of PRBCs, COVID 19 testing was sent based on her symptoms On 10/06/2019 patient seen in follow-up on selective care unit. She remains in droplet isolation: COVID19 testing is not back, her breathing is improving, room air pulse ox is 98%, hemodynamically stable, afebrile, Sy on Rocephin and Zithromax for possibility of community-acquired pneumonia in the right upper lobe, we ordered a CT chest with contrast yesterday to rule out possibility of right upper lobe mass, however for some reason it was canceled and the ci rcumstance is not clear. Patient still has a dry cough, nonproductive, lung sounds are clear, diminished, no rhonchi, no crackles, today's labs have been reviewed showing white blood cell count 14.8, hemoglobin of 7.4, serum sodium 134, and the rest of the electrolytes were within normal limits. GI consultation was noted, and there is no plans for endoscopic study at this time. Objective - Vital Signs Vital signs: Vital Signs Temp 98.4 F 10/06/19 04:00 Pulse 76 10/06/19 09:23 Resp 18 10/06/19 04:00 BP 140/78 10/06/19 04:00 Pulse Ox 98 10/06/19 04:00 Intake & Output 10/05/19 10/06/19 10/06/19 18:59 06:59 18:59 Intake Total 760 240 Output Total 800 Balance -40 240 Weight 90.5 kg Intake: Oral 760 240 Output: Urine 800 Other: # Voids 3 - Exam GENERAL EXAM: Alert, very pleasant, 59-year-old obese white female, on room air, with pulse ox of 97-98% comfortable in no apparent distress. HEAD: Normocephalic/atraumatic. EYES: Normal reaction of pupils, equal size. Conjunctiva pink, sclera white. NOSE: Clear with pink turbinates. THROAT: No erythema or exudates. NECK: No masses, no JVD, no thyroid enlargement, no adenopathy. CHEST: No chest wall deformity. Symmetrical expansion. LUNGS: Diminished air entry with minimal wheezes, no rhonchi or dullness. CVS: Regular rate and rhythm, normal S1 and S2, no gallops, no murmurs, no rubs ABDOMEN: Soft, nontender. No hepatosplenomegaly, normal bowel sounds, no gu arding or rigidity. EXTREMITIES: No clubbing, no edema, no cyanosis, 2+ pulses and upper and lower e xtremities. MUSCULOSKELETAL: Muscle strength and tone normal. SPINE: No scoliosis or deformity SKIN: No rashes CENTRAL NERVOUS SYSTEM: Alert and oriented -3. No focal deficits, tone is normal in all 4 extremities. PSYCHIATRIC: Alert and oriented -3. Appropriate affect. Intact judgment and insight. - Labs CBC & Chem 7: 10/06/19 05:53 10/06/19 05:53 Labs: Abnormal Lab Results - Last 24 Hours (Table) 10/05/19 10/05/19 10/05/19 Range/Units 06:12 06:12 11:36 WBC (3.8-10.6) k/uL RBC (3.80-5.40) m/uL Hgb (11.4-16.0) gm/dL Hct (34.0-46.0) % MCV (80.0-100.0) fL MCH (25.0-35.0) pg MCHC (31.0-37.0) g/dL RDW (11.5-15.5) % Neutrophils # (1.3-7.7) k/uL Lymphocytes # (1.0-4.8) k/uL Sodium (137-145) mmol/L BUN (7-17) mg/dL Glucose (74-99) mg/dL POC Glucose (mg/dL) 243 H (75-99) mg/dL Iron 8 L (50-170) ug/dL % Saturation 2.19 L (12.00-45.00) Procalcitonin 0.83 H (0.02-0.09) ng/mL Urine Protein (Negative) Urine Glucose (UA) (Negative) Hyaline Casts (0-2) /lpf Urine Mucus (None) /hpf U Cannabinoids Screen (Negative) ng/mL 10/05/19 10/05/19 10/05/19 Range/Units 16:49 19:00 19:00 WBC (3.8-10.6) k/uL RBC (3.80-5.40) m/uL Hgb (11.4-16.0) gm/dL Hct (34.0-46.0) % MCV (80.0-100.0) fL MCH (25.0-35.0) pg MCHC (31.0-37.0) g/dL RDW (11.5-15.5) % Neutrophils # (1.3-7.7) k/uL Lymphocytes # (1.0-4.8) k/uL Sodium (137-145) mmol/L BUN (7-17) mg/dL Glucose (74-99) mg/dL POC Glucose (mg/dL) 247 H (75-99) mg/dL Iron (50-170) ug/dL % Saturation (12.00-45.00) Procalcitonin (0.02-0.09) ng/mL Urine Protein 1+ H (Negative) Urine Glucose (UA) 3+ H (Negative) Hyaline Casts 11 H (0-2) /lpf Urine Mucus Rare H (None) /hpf U Cannabinoids Screen Positive H (Negative) ng/mL 10/05/19 10/06/19 10/06/19 Range/Units 20:26 05:53 05:53 WBC 14.8 H (3.8-10.6) k/uL RBC 3.54 L (3.80-5.40) m/uL Hgb 7.4 L (11.4-16.0) gm/dL Hct 27.4 L (34.0-46.0) % MCV 77.4 L (80.0-100.0) fL MCH 20.8 L (25.0-35.0) pg MCHC 26.8 L (31.0-37.0) g/dL RDW 18.0 H (11.5-15.5) % Neutrophils # 13.8 H (1.3-7.7) k/uL Lymphocytes # 0.5 L (1.0-4.8) k/uL Sodium 134 L (137-145) mmol/L BUN 22 H (7-17) mg/dL Glucose 231 H (74-99) mg/dL POC Glucose (mg/dL) 389 H (75-99) mg/dL Iron (50-170) ug/dL % Saturation (12.00-45.00) Procalcitonin (0.02-0.09) ng/mL Urine Protein (Negative) Urine Glucose (UA) (Negative) Hyaline Casts (0-2) /lpf Urine Mucus (None) /hpf U Cannabinoids Screen (Negative) ng/mL 10/06/19 Range/Units 06:15 WBC (3.8-10.6) k/uL RBC (3.80-5.40) m/uL Hgb (11.4-16.0) gm/dL Hct (34.0-46.0) % MCV (80.0-100.0) fL MCH (25.0-35.0) pg MCHC (31.0-37.0) g/dL RDW (11.5-15.5) % Neutrophils # (1.3-7.7) k/uL Lymphocytes # (1.0-4.8) k/uL Sodium (137-145) mmol/L BUN (7-17) mg/dL Glucose (74-99) mg/dL POC Glucose (mg/dL) 254 H (75-99) mg/dL Iron (50-170) ug/dL % Saturation (12.00-45.00) Procalcitonin (0.02-0.09) ng/mL Urine Protein (Negative) Urine Glucose (UA) (Negative) Hyaline Casts (0-2) /lpf Urine Mucus (None) /hpf U Cannabinoids Screen (Negative) ng/mL Microbiology - Last 24 Hours (Table) 10/04/19 12:10 Blood Culture - Preliminary Blood No Growth after 24 hours Assessment and Plan Plan: Assessment: #1. Febrile illness, dyspnea, cough, possibly related to right upper lobe pneumonia. Chest x-ray showed right upper lobe opacity and interstitial prominence. Influenza screen was negative, COVID 19 testing sent and is pending at this time #2. Altered mental status on admission, possibly related to sepsis, improved on today's exam #3. Acute on chronic anemia, patient presented with a hemoglobin of 6.7, was transfused with 1 unit of packed red blood cells. Occult stool was positive for blood. She has previous history of chronic anemia requiring blood transfusions #4. Former smoker, in remission since 1999, smoked half a pack a day for 10 yea rs #5. History of bronchitis, suspect COPD #6. Anxiety/depression Plan: Continue current medical treatment, same antibiotics, patient has been afebrile, hemodynamically stable, she is maintaining stable saturations on room air, breathing is improving, still has the dry cough, we'll need a CT of the chest with contrast to rule out possibility of pulmonary mass in the right upper lobe. We'll continue to follow, COVID 19 is still pending I performed a history & physical examination of the patient and discussed their management with my nurse practitioner, Salima Valencia. I reviewed the nurse practitioner's note and agree with the documented findings and plan of care. Lung sounds are positive for mild wheezing throughout the lung watts. The findings and the impression was discussed with the patient. I attest to the documentation by the nurse practitioner. Time with Patient: Less than 30
[2019-10-06] MEDS ORDERED: SODIUM FERRIC GLUCONAT-SUCROSE 125 MG in SODIUM CHLORIDE 0.9% 100 ML IVPB ONE (11:00)
--- NOTE | 2019-10-06 11:15 | CDI ---
Documentation Clarification Form Date: 10/06/2019 11:02:54 AM From: Aida Shaffer RN, CCDS Admit Date: 10/04/2019 01:20:00 PM Patient Name: Angela Mckee Visit Number: [id number] ATTENTION: The Clinical Documentation Specialists (CDI) and [facility] Coding Staff appreciate your assistance in clarifying documentation. Please respond to the clarification below the line at the bottom and electronically sign. The CDI & [facility] Coding staff will review the response and follow-up if needed. Please note: Queries are made part of the Legal Health Record. If you have any questions, please contact the author of this message via ITS. Dr. America Higginbotham Altered Mental Status was documented and requires further specificity. History/Risk Factors: Anxiety, Depression, COPD Clinical Indicators: 10/04 and 10/05 Pulmonary:" Altered mental status on admission, possibly related to sepsis, improved on today's exam, possible pneumonia, acute on chronic anemia Labs: HGB 6.7/7.4, WBC 10/11.6/14.8, NA+ 132/136/134, glucose 322/389/254, UDS + cannabis 10/04 CXR: "Increasing confluence of the right apical opacity that may represent pneumonia in the appropriate clinical setting. Follow-up to resolution is recommended to exclude mass or nodule." Treatment: Zithromax 500 mg Po QD, Ceftriaxone 1 gm IVPB Q 24 hrs, IV Solumedrol tapering dose 10/03 1L IVF 0.9% NS Bolus followed by 130 cc/hr x 1L Ultram 100 mg Po BID In your professional opinion, please clarify the etiology of the Altered Mental Status, if known. Delirium (specify cause): Metabolic Encephalopathy (Specify cause if known) Other condition (please specify) Unable to determine (Last Revision: October 2017) MTDD
[2019-10-06] MEDS ORDERED: guaiFENesin-DM 100-10MG/5ML 10 ML CUP PO PRN (11:41)
--- NOTE | 2019-10-06 11:48 | P.PN ---
Subjective This is a pleasant 5 years old female with past medical history of COPD, anemia status post transfusion, chronic low back pain and restless leg syndrome. Events with respiratory and febrile Illness and she's been tested for covid-19, and she was suspected to have right upper lung mass, CAT scan of the chest is recommended to however it was held until the result of Covid 19 back, there was suspicion of altered mental status on admission as well. However this morning patient was sitting on the side of the bed, fairly comfortable, fully awake and oriented to time place and person, and to her condition. He then quietly, no chest pain, occasional dry cough, GI evaluated the patient and recommended no procedure in view of her anemia of 6.7 upon admission, 7.8 yesterday 7.4 today, she is WBC is went up to 14.8 K, however she is on Solu-Medrol 60 mg as well as Zithromax and Rocephin, Objective - Vital Signs Vital signs: Vital Signs Temp 98.4 F 10/06/19 04:00 Pulse 76 10/06/19 09:23 Resp 18 10/06/19 04:00 BP 140/78 10/06/19 04:00 Pulse Ox 98 10/06/19 04:00 Intake & Output 10/05/19 10/06/19 10/06/19 18:59 06:59 18:59 Intake Total 760 240 Output Total 800 Balance -40 240 Weight 90.5 kg Intake: Oral 760 240 Output: Urine 800 Other: # Voids 3 - Exam GENERAL: The patient is alert and oriented x3, not in any acute distress. Well developed, well nourished. HEENT: Pupils are round and equally reacting to light. EOMI. No scleral icterus. No conjunctival pallor. Normocephalic, atraumatic. No pharyngeal erythema. No thyromegaly. CARDIOVASCULAR: S1 and S2 present. No murmurs, rubs, or gallops. -PULMONARY: Chest is clear to auscultation, Decreased breath sounds especially on the right side, scattered wheezing ABDOMEN: Soft, nontender, nondistended, normoactive bowel sounds. No palpable organomegaly. MUSCULOSKELETAL: No joint swelling or deformity. EXTREMITIES: No cyanosis, clubbing, or pedal edema. NEUROLOGICAL: Gross neurological examination did not reveal any focal deficits. SKIN: No rashes. no petechiae. - Labs CBC & Chem 7: 10/06/19 05:53 10/06/19 05:53 Labs: Abnormal Lab Results - Last 24 Hours (Table) 10/05/19 10/05/19 10/05/19 Range/Units 06:12 06:12 16:49 WBC (3.8-10.6) k/uL RBC (3.80-5.40) m/uL Hgb (11.4-16.0) gm/dL Hct (34.0-46.0) % MCV (80.0-100.0) fL MCH (25.0-35.0) pg MCHC (31.0-37.0) g/dL RDW (11.5-15.5) % Neutrophils # (1.3-7.7) k/uL Lymphocytes # (1.0-4.8) k/uL Sodium (137-145) mmol/L BUN (7-17) mg/dL Glucose (74-99) mg/dL POC Glucose (mg/dL) 247 H (75-99) mg/dL Iron 8 L (50-170) ug/dL % Saturation 2.19 L (12.00-45.00) Procalcitonin 0.83 H (0.02-0.09) ng/mL Urine Protein (Negative) Urine Glucose (UA) (Negative) Hyaline Casts (0-2) /lpf Urine Mucus (None) /hpf U Cannabinoids Screen (Negative) ng/mL 10/05/19 10/05/19 10/05/19 Range/Units 19:00 19:00 20:26 WBC (3.8-10.6) k/uL RBC (3.80-5.40) m/uL Hgb (11.4-16.0) gm/dL Hct (34.0-46.0) % MCV (80.0-100.0) fL MCH (25.0-35.0) pg MCHC (31.0-37.0) g/dL RDW (11.5-15.5) % Neutrophils # (1.3-7.7) k/uL Lymphocytes # (1.0-4.8) k/uL Sodium (137-145) mmol/L BUN (7-17) mg/dL Glucose (74-99) mg/dL POC Glucose (mg/dL) 389 H (75-99) mg/dL Iron (50-170) ug/dL % Saturation (12.00-45.00) Procalcitonin (0.02-0.09) ng/mL Urine Protein 1+ H (Negative) Urine Glucose (UA) 3+ H (Negative) Hyaline Casts 11 H (0-2) /lpf Urine Mucus Rare H (None) /hpf U Cannabinoids Screen Positive H (Negative) ng/mL 10/06/19 10/06/19 10/06/19 Range/Units 05:53 05:53 06:15 WBC 14.8 H (3.8-10.6) k/uL RBC 3.54 L (3.80-5.40) m/uL Hgb 7.4 L (11.4-16.0) gm/dL Hct 27.4 L (34.0-46.0) % MCV 77.4 L (80.0-100.0) fL MCH 20.8 L (25.0-35.0) pg MCHC 26.8 L (31.0-37.0) g/dL RDW 18.0 H (11.5-15.5) % Neutrophils # 13.8 H (1.3-7.7) k/uL Lymphocytes # 0.5 L (1.0-4.8) k/uL Sodium 134 L (137-145) mmol/L BUN 22 H (7-17) mg/dL Glucose 231 H (74-99) mg/dL POC Glucose (mg/dL) 254 H (75-99) mg/dL Iron (50-170) ug/dL % Saturation (12.00-45.00) Procalcitonin (0.02-0.09) ng/mL Urine Protein (Negative) Urine Glucose (UA) (Negative) Hyaline Casts (0-2) /lpf Urine Mucus (None) /hpf U Cannabinoids Screen (Negative) ng/mL Microbiology - Last 24 Hours (Table) 10/04/19 12:10 Blood Culture - Preliminary Blood No Growth after 24 hours Assessment and Plan Assessment: Acute respiratory febrile illness secondary to pneumonia, Covid 19 is pending acute COPD exacerbation Low hemoglobin and anemia upon admission status post blood transfusion, quality assurance project manager recommended no scope Chronic low back pain Restless leg syndrome Obesity, BMI is 36.5 Plan: This is a pleasant 59 years old female who presents with pneumonia and low hemoglobin, continue with monitoring, continue with antibiotics and steroids, patient is followed by pulmonary and GI service for now. Follow-up results of Covid 19, patient was instructed thoroughly about precautions and the importance of follow-up and she verbalized understanding Labs and medication were reviewed.. Continue same treatment. Continue with symptomatic treatment. Resume home medication. Monitor lytes and vitals. DVT and GI prophylaxis. Further recommendations of the clinical course of the patient DVT prophylaxis: Subcutaneous Lovenox GI Prophylaxis: Pepcid Prognosis is guarded
[2019-10-06 11:53] LABS: Glucose,Whole Blood 204 mg/dL (75-99)
[2019-10-06] MEDS: ENOXAPARIN 40 MG/0.4 ML SYRINGE SQ SCH (12:39)
--- NOTE | 2019-10-06 12:47 | PN ---
PROGRESS NOTE DATE OF DICTATION: 10/06/2019 The patient is a 59-year-old pleasant white female admitted to hospital with pneumonia, presently on broad-spectrum antibiotics and COVID test is pending. She is being followed by Dr. Higginbotham. She was noted to have anemia while in the hospital with a hemoglobin of 6.5 requiring unit of blood transfusion. Presently, hemoglobin is stable at 7.4 g/dL. She denies any GI bleed. No abdominal pain. No nausea, vomiting. PHYSICAL EXAMINATION: On physical examination, appears comfortable, no apparent distress. Vital signs are stable. Blood pressure 113/86, pulse rate 82 per minute and afebrile. HEENT: Examination unremarkable. Conjunctivae pink. Sclerae anicteric. Oral cavity no lesions. NECK: No JVD or lymph node enlargement. CHEST: Clear to auscultation. HEART: Regular rate and rhythm. ABDOMEN: Soft. Bowel sounds are positive. EXTREMITIES: No pedal edema. SKIN: No rashes. NEUROLOGIC: Alert and oriented x3. No focal deficits. LABS: Labs from today: WBC 14.8, hemoglobin 7.4, platelets normal. Iron studies show an iron of 8, TIBC 366, iron saturation 2.19%, ferritin of 45. IMPRESSION: 1. Iron deficiency anemia, but clinically no evidence of active bleeding. Hemoccult stool was positive consistent with occult gastrointestinal blood loss. Patient received one unit of PRBC transfusion hemoglobin stable at 7.4 g/dL. She did have an EGD, colonoscopy and small bowel capsule endoscopy in the [place] area in February of 2019 that was unremarkable. 2. Shortness of breath, cough secondary to pneumonia on broad-spectrum antibiotics. 3. Questionable lung lesion. She will be scheduled for a CT of the chest on outpatient basis. RECOMMENDATIONS: 1. We will start her on iron infusions. 2. Monitor CBC on a daily basis. 3. Continue with broad-spectrum antibiotics. 4. She was advised to follow up in the office in 3 to 4 weeks following discharge from the hospital. 5. No plans for any repeat endoscopic intervention at the present time. Thank you for this consultation. MMODL / IJN: [id number] /
--- NOTE | 2019-10-06 14:01 | P.PN ---
Progress Note - Text Progress Note Date: 10/06/19 This is an addendum on the documentation regarding her mental status change, it is felt to be acute mental status changes secondary to metabolic encephalopathy secondary to pneumonia, and acute febrile illness. Possible sepsis.
[2019-10-06 16:44] LABS: Glucose,Whole Blood 254 mg/dL (75-99)
[2019-10-06 21:34] LABS: Glucose,Whole Blood 293 mg/dL (75-99)
[2019-10-06] MEDS: CYCLOBENZAPRINE 10 MG TAB PO SCH (21:34)
[2019-10-06] MEDS: FAMOTIDINE 20 MG/2 ML VIAL IV SCH (21:34)
[2019-10-06] MEDS: FERROUS SULFATE 325 MG TAB PO SCH (21:38)
[2019-10-07 06:39] LABS: Anisocytosis Slight; Basophils % (A) 0 %; Eosinophils % (A) 0 %; HCT 27.5 % (34.0-46.0); HGB 7.8 gm/dL (11.4-16.0); Hypochromasia Marked; Lymphocytes # (A) 0.5 k/uL (1.0-4.8); Lymphocytes % (A) 5 %; MCH 21.4 pg (25.0-35.0); MCHC 28.3 g/dL (31.0-37.0); MCV 75.8 fL (80.0-100.0); Mean Platelet Volume 7.5; Microcytosis Slight; Monocytes # (A) 0.2 k/uL (0-1.0); Monocytes % (A) 3 %; Neutrophils # (A) 8.5 k/uL (1.3-7.7); Neutrophils % (A) 92 %; Platelet Count 349 k/uL (150-450); Poikilocytosis Moderate; RBC 3.63 m/uL (3.80-5.40); RDW 18.1 % (11.5-15.5); WBC 9.2 k/uL (3.8-10.6)
[2019-10-07 06:43] LABS: Glucose,Whole Blood 269 mg/dL (75-99)
[2019-10-07] MEDS: FERROUS SULFATE 325 MG TAB PO SCH ×2 (06:51→17:16)
[2019-10-07] MEDS: methylPREDNISolone SOD SUCCI 125 MG/2 ML VIAL IV SCH ×3 (06:51→16:55)
[2019-10-07] MEDS: INSULIN ASPART (NovoLOG) 100 UNIT/ML VIAL SQ SCH ×3 (06:51→17:16)
[2019-10-07] MEDS: BUDESONIDE 1 MG/2 ML NEBU INHALATION SCH (08:27)
[2019-10-07] MEDS: IPRATROPIUM-ALBUTEROL 3 ML NEB INHALATION SCH ×2 (08:27→13:25)
[2019-10-07] MEDS: FORMOTEROL FUMARATE 20 MCG/2 ML NEBU INHALATION SCH (08:27)
[2019-10-07] MEDS: AZITHROMYCIN 500 MG in SODIUM CHLORIDE 0.9% 250 ML IVPB SCH (09:18)
[2019-10-07] MEDS: POTASSIUM CHLORIDE ER 10 MEQ TAB.ER.PRT PO SCH (09:19)
[2019-10-07] MEDS: ENOXAPARIN 40 MG/0.4 ML SYRINGE SQ SCH (09:20)
[2019-10-07] MEDS: FAMOTIDINE 20 MG/2 ML VIAL IV SCH (09:20)
[2019-10-07] MEDS: MAGNESIUM OXIDE 400 MG TAB PO SCH (09:20)
[2019-10-07] MEDS: DULoxetine HCL 60 MG CAPSULE.DR PO SCH (09:20)
[2019-10-07] MEDS: PANTOPRAZOLE 40 MG/10 ML VIAL IVP SCH (09:20)
[2019-10-07] MEDS: LORazepam 1 MG TAB PO SCH (09:20)
[2019-10-07] MEDS: traMADol 50 MG TAB PO SCH (09:21)
--- NOTE | 2019-10-07 11:09 | P.PN ---
Subjective Progress Note Date: 10/07/19 59-year-old female with past medical history of chronic anemia requiring blood transfusions, anxiety, depression, bronchitis who presented to the hospital on10/04/2019 for evaluation of shortness of breath, cough, and fever, in addition patient had altered mentation. On presentation patient's fe anastasiia was 102.8F, patient was tachycardic. Patient had been sick at home for last 4 days. When she called her primary care provider he was told to go to the nearest emergency department, chest x-ray was completed showing right upper lobe opacity that could represent pneumonia, and diffuse interstitial prominence with consideration of cardiogenic fluid overload. Lab work showed white blood cell c ount of 10.0, hemoglobin of 6.7, platelet count of 280, coagulation profile was within normal limits, serum sodium was 132, electrolytes and renal profile were unremarkable, plasma lactic acid was 1.8, LFTs were within normal limits, influenza screen was negative. Stool for occult blood was positive. Patient is on daily Protonix on the regular basis, and naproxen 140 mg twice daily. She has albuterol rescue inhaler at home. She states she has smoked in the past, she quit in 1999, smoked half a pack a day for 10 years. Not on oxygen on a regular basis. She was placed on Zithromax and Rocephin for antibiotic coverage, her cough is dry, patient is not able to clear any sputum, her mentati on is much improved today, she was given IV fluids, and received 1 units of PRBCs, COVID 19 testing was sent based on her symptoms On 10/06/2019 patient seen in follow-up on selective care unit. She remains in droplet isolation: COVID19 testing is not back, her breathing is improving, room air pulse ox is 98%, hemodynamically stable, afebrile, Sy on Rocephin and Zithromax for possibility of community-acquired pneumonia in the right upper lobe, we ordered a CT chest with contrast yesterday to rule out possibility of right upper lobe mass, however for some reason it was canceled and the ci rcumstance is not clear. Patient still has a dry cough, nonproductive, lung sounds are clear, diminished, no rhonchi, no crackles, today's labs have been reviewed showing white blood cell count 14.8, hemoglobin of 7.4, serum sodium 134, and the rest of the electrolytes were within normal limits. GI consultation was noted, and there is no plans for endoscopic study at this time. On 10/07/2019 patient seen in follow-up on selective care unit, she states she is feeling better, she is able to walk a little farther without being short of breath, and the coughing seems to be subsiding, lung sounds are clear on today's examination, no rhonchi, no wheezing, room air pulse ox is 100%, patient is a febrile, hemodynamically she stable, she is on a combination of Rocephin and Zithromax, breathing treatments and IV steroids. No acute events overnight, COVID 19 testing results are not back yet. Objective - Vital Signs Vital signs: Vital Signs Temp 98.1 F 10/07/19 04:00 Pulse 70 10/07/19 08:38 Resp 18 10/07/19 04:00 BP 166/81 10/07/19 04:00 Pulse Ox 100 10/07/19 04:00 Intake & Output 10/06/19 10/07/19 10/07/19 18:59 06:59 18:59 Intake Total 1080 540 Output Total 275 400 Balance 1080 -275 140 Weight 90.4 kg Intake: Oral 1080 540 Output: Urine 275 400 Other: Voiding Method Toilet # Voids 1 - Exam GENERAL EXAM: Alert, very pleasant, 59-year-old obese white female, on room air, with pulse ox of 97-98% comfortable in no apparent distress. HEAD: Normocephalic/atraumatic. EYES: Normal reaction of pupils, equal size. Conjunctiva pink, sclera white. NOSE: Clear with pink turbinates. THROAT: No erythema or exudates. NECK: No masses, no JVD, no thyroid enlargement, no adenopathy. CHEST: No chest wall deformity. Symmetrical expansion. LUNGS: Diminished air entry with no wheezing, no rhonchi, no rales CVS: Regular rate and rhythm, normal S1 and S2, no gallops, no murmurs, no rubs ABDOMEN: Soft, nontender. No hepatosplenomegaly, normal bowel sounds, no guarding or rigidity. EXTREMITIES: No clubbing, no edema, no cyanosis, 2+ pulses and upper and lower extremities. MUSCULOSKELETAL: Muscle strength and tone normal. SPINE: No scoliosis or deformity SKIN: No rashes CENTRAL NERVOUS SYSTEM: Alert and oriented -3. No focal deficits, tone is normal in all 4 extremities. PSYCHIATRIC: Alert and oriented -3. Appropriate affect. Intact judgment and insight. - Labs CBC & Chem 7: 10/07/19 06:23 10/06/19 05:53 Labs: Abnormal Lab Results - Last 24 Hours (Table) 10/06/19 10/06/19 10/06/19 Range/Units 11:46 16:36 21:33 RBC (3.80-5.40) m/uL Hgb (11.4-16.0) gm/dL Hct (34.0-46.0) % MCV (80.0-100.0) fL MCH (25.0-35.0) pg MCHC (31.0-37.0) g/dL RDW (11.5-15.5) % Neutrophils # (1.3-7.7) k/uL Lymphocytes # (1.0-4.8) k/uL POC Glucose (mg/dL) 204 H 254 H 293 H (75-99) mg/dL 10/07/19 10/07/19 Range/Units 06:23 06:42 RBC 3.63 L (3.80-5.40) m/uL Hgb 7.8 L (11.4-16.0) gm/dL Hct 27.5 L (34.0-46.0) % MCV 75.8 L (80.0-100.0) fL MCH 21.4 L (25.0-35.0) pg MCHC 28.3 L (31.0-37.0) g/dL RDW 18.1 H (11.5-15.5) % Neutrophils # 8.5 H (1.3-7.7) k/uL Lymphocytes # 0.5 L (1.0-4.8) k/uL POC Glucose (mg/dL) 269 H (75-99) mg/dL Microbiology - Last 24 Hours (Table) 10/04/19 12:10 Blood Culture - Preliminary Blood No Growth after 48 hours Assessment and Plan Plan: Assessment: #1. Febrile illness, dyspnea, cough, possibly related to right upper lobe pneumonia. Chest x-ray showed right upper lobe opacity and interstitial prominence. Influenza screen was negative, COVID 19 testing sent and is pending at this time #2. Altered mental status on admission, possibly related to sepsis, improved on today's exam #3. Acute on chronic anemia, patient presented with a hemoglobin of 6.7, was transfused with 1 unit of packed red blood cells. Occult stool was positive for blood. She has previous history of chronic anemia requiring blood transfusions #4. Former smoker, in remission since 1999, smoked half a pack a day for 10 years #5. History of bronchitis, suspect COPD #6. Anxiety/depression #7. Chronic cough for over a year, dry, nonproductive Plan: Continue current medical treatment, patient is feeling better, shortness of breath is improving, no rhonchi no wheezing, no fever or chills, no altered me ntation, we'll obtain follow-up chest x-ray today. We'll continue to follow, COVID 19 is still pending I performed a history & physical examination of the patient and discussed their management with my nurse practitioner, Salima Valencia. I reviewed the nurse practitioner's note and agree with the documented findings and plan of care. Lung sounds are positive for mild wheezing throughout the lung watts. The findings and the impression was discussed with the patient. I attest to the documentation by the nurse practitioner. Time with Patient: Less than 30
--- NOTE | 2019-10-07 11:50 | P.PN ---
Subjective This is a pleasant 5 years old female with past medical history of COPD, anemia status post transfusion, chronic low back pain and restless leg syndrome. Events with respiratory and febrile Illness and she's been tested for covid-19, and she was suspected to have right upper lung mass, CAT scan of the chest is recommended to however it was held until the result of Covid 19 back, there was suspicion of altered mental status on admission as well. However this morning patient was sitting on the side of the bed, fairly comfortable, fully awake and oriented to time place and person, and to her condition. He then quietly, no chest pain, occasional dry cough, GI evaluated the patient and recommended no procedure in view of her anemia of 6.7 upon admission, 7.8 yesterday 7.4 today, she is WBC is went up to 14.8 K, however she is on Solu-Medrol 60 mg as well as Zithromax and Rocephin, 10/07/2019 Patient states that her dyspnea and coughing are subsiding, patient was started on Robitussin but the patient hasn't been taking the dose. Vitals are stable, she says hasn't had percent on room air. Sugar slightly elevated probably because she is on steroids, hemoglobin stable at 7.8 and patient was started on iron pills. Creatinine 0.6. Patient remains on Zithromax and Rocephin as well as Solu-Medrol. Objective - Vital Signs Vital signs: Vital Signs Temp 98.1 F 10/07/19 04:00 Pulse 70 10/07/19 08:38 Resp 18 10/07/19 04:00 BP 166/81 10/07/19 04:00 Pulse Ox 100 10/07/19 04:00 Intake & Output 10/06/19 10/07/19 10/07/19 18:59 06:59 18:59 Intake Total 1080 540 Output Total 275 400 Balance 1080 -275 140 Weight 90.4 kg Intake: Oral 1080 540 Output: Urine 275 400 Other: Voiding Method Toilet # Voids 1 - Exam GENERAL: The patient is alert and oriented x3, not in any acute distress. Well developed, well nourished. HEENT: Pupils are round and equally reacting to light. EOMI. No scleral icterus. No conjunctival pallor. Normocephalic, atraumatic. No pharyngeal erythema. No thyromegaly. CARDIOVASCULAR: S1 and S2 present. No murmurs, rubs, or gallops. -PULMONARY: Chest is clear to auscultation, Decreased breath sounds especially on the right side, scattered wheezing ABDOMEN: Soft, nontender, nondistended, normoactive bowel sounds. No palpable organomegaly. MUSCULOSKELETAL: No joint swelling or deformity. EXTREMITIES: No cyanosis, clubbing, or pedal edema. NEUROLOGICAL: Gross neurological examination did not reveal any focal deficits. SKIN: No rashes. no petechiae. - Labs CBC & Chem 7: 10/07/19 06:23 10/06/19 05:53 Labs: Abnormal Lab Results - Last 24 Hours (Table) 10/06/19 10/06/19 10/06/19 Range/Units 11:46 16:36 21:33 RBC (3.80-5.40) m/uL Hgb (11.4-16.0) gm/dL Hct (34.0-46.0) % MCV (80.0-100.0) fL MCH (25.0-35.0) pg MCHC (31.0-37.0) g/dL RDW (11.5-15.5) % Neutrophils # (1.3-7.7) k/uL Lymphocytes # (1.0-4.8) k/uL POC Glucose (mg/dL) 204 H 254 H 293 H (75-99) mg/dL 10/07/19 10/07/19 Range/Units 06:23 06:42 RBC 3.63 L (3.80-5.40) m/uL Hgb 7.8 L (11.4-16.0) gm/dL Hct 27.5 L (34.0-46.0) % MCV 75.8 L (80.0-100.0) fL MCH 21.4 L (25.0-35.0) pg MCHC 28.3 L (31.0-37.0) g/dL RDW 18.1 H (11.5-15.5) % Neutrophils # 8.5 H (1.3-7.7) k/uL Lymphocytes # 0.5 L (1.0-4.8) k/uL POC Glucose (mg/dL) 269 H (75-99) mg/dL Microbiology - Last 24 Hours (Table) 10/04/19 12:10 Blood Culture - Preliminary Blood No Growth after 48 hours Assessment and Plan Assessment: Acute respiratory febrile illness secondary to pneumonia, Covid 19 is pending acute COPD exacerbation Low hemoglobin and anemia upon admission status post blood transfusion, gastro enterologist recommended no scope Chronic low back pain Restless leg syndrome Obesity, BMI is 36.5 Plan: This is a pleasant 59 years old female who presents with pneumonia and low hemoglobin, continue with monitoring, continue with antibiotics and steroids, patient is followed by pulmonary and GI service for now. Follow-up results of Covid 19, patient was instructed thoroughly about precautions and the importance of follow-up and she verbalized understanding Labs and medication were reviewed.. Continue same treatment. Continue with symptomatic treatment. Resume home medication. Monitor lytes and vitals. DVT and GI prophylaxis. Further recommendations of the clinical course of the patient DVT prophylaxis: Subcutaneous Lovenox GI Prophylaxis: Pepcid Prognosis is guarded
--- NOTE | 2019-10-07 11:56 | XR ---
EXAMINATION TYPE: XR chest 1V portable DATE OF EXAM: 10/07/2019 CLINICAL HISTORY: Abnormal x-ray. TECHNIQUE: Single AP portable upright view of the chest is obtained. COMPARISON: Chest x-ray from 2 days earlier And older x-rays. FINDINGS: There is chronic parenchymal change with improved aeration right lung apex. No new focal a irspace opacity, pleural effusion, or pneumothorax seen bilaterally. Cardiac silhouette size is stabl e and upper limits of normal. Osseous structures are intact. IMPRESSION: Improved aeration right lung apex. No new infiltrate.
[2019-10-07 12:03] LABS: Glucose,Whole Blood 218 mg/dL (75-99)
[2019-10-07 14:26] LABS: Glucose,Whole Blood 295 mg/dL (75-99)
[2019-10-07 15:02] VITALS: BP 130/70; TEMP 97.9
[2019-10-07 15:03] VITALS: PULSE 105
[2019-10-07 17:18] LABS: Glucose,Whole Blood 244 mg/dL (75-99)
== END 2019-10-07 18:04 | disposition home or self-care (01) | DRG 871 ==
LOC: EC 10:37 → 3SCARD 13:20
PROVIDERS: ADMIT Hospitalist; ATTEND Hospitalist
PROC: 30233N1 Transfusion of Nonautologous Red Blood Cells into Peripheral Vein, Percutaneous Approach (ICD-10-PCS; principal; 2019-10-04)
DX: A41.9 Sepsis, unspecified organism (principal); G93.41 Metabolic encephalopathy; J18.9 Pneumonia, unspecified organism; J44.0 Chronic obstructive pulmonary disease with (acute) lower respiratory infection; J44.1 Chronic obstructive pulmonary disease with (acute) exacerbation; D50.9 Iron deficiency anemia, unspecified; G25.81 Restless legs syndrome; F41.9 Anxiety disorder, unspecified; F32.9 Major depressive disorder, single episode, unspecified; E66.9 Obesity, unspecified; E88.09 Other disorders of plasma-protein metabolism, not elsewhere classified; Z66 Do not resuscitate; M19.90 Unspecified osteoarthritis, unspecified site; Z20.828 Contact with and (suspected) exposure to other viral communicable diseases; G89.29 Other chronic pain; Z68.36 Body mass index [BMI] 36.0-36.9, adult; Z79.899 Other long term (current) drug therapy; Z98.51 Tubal ligation status; Z87.891 Personal history of nicotine dependence; Z82.49 Family history of ischemic heart disease and other diseases of the circulatory system; Z90.721 Acquired absence of ovaries, unilateral; Z83.49 Family history of other endocrine, nutritional and metabolic diseases
CPT/HCPCS: 36415; 71045; 71046; 80048; 80053; 80306; 81001; 82272; 82728; 83540; 83550; 83605; 83735; 84145; 85025; 85610; 85730; 86850; 86900; 86901; 86920; 87040; 87502; 93005; 94640; 96361; 96374; 96375; 99291